=== PATIENT | female | born 1995 | race Caucasian/White ===

== ENCOUNTER 2016-05-24 11:54 | Emergency (ER) | payer MEDICAID ==
[2016-05-24 12:57] LABS: BASOPHILS 0.2 % (0.0-2.0); EOSINOPHILS 0.1 % (0-7); HEMATOCRIT 36.3 % (36.0-48.0); IMMATURE GRANULOCYTES 0.2 % (0-5); LYMPHOCYTES 20.3 % (15-50); MCH 20.7 pg (26.0-34.0); MCHC 30.3 g/dL (31.0-37.0); MCV 68.4 fL (80.0-100.0); MEAN PLATELET VOLUME 10.4 fL (7.4-10.4); MONOCYTES 6.4 % (2-11); NEUTROPHILS 72.8 % (40-80); PLATELET COUNT 267 10x3/uL (130-400); RBC 5.31 10x6/uL (4.00-5.40); RDW 16.6 % (11.5-14.5); WBC 12.1 10x3/uL (4.8-10.8)
[2016-05-24 13:08] LABS: HCG SERUM NEGATIVE (NEGATIVE)
[2016-05-24 13:52] LABS: APPEARANCE HAZY (CLEAR); BACTERIA MODERATE /hpf (NONE SEEN); BILIRUBIN NEGATIVE (NEGATIVE); COLOR YELLOW/PINK (YELLOW); GLUCOSE NEGATIVE (NEGATIVE); KETONE NEGATIVE (NEGATIVE); LEUKOCYTE ESTERASE 1+ (NEGATIVE); MUCUS <1+ /lpf (NONE SEEN); NITRITE NEGATIVE (NEGATIVE); PROTEIN 1+ mg/dL (NEGATIVE); RED CELLS - URINE >50 /hpf (0-5); UROBILINOGEN NORMAL (NORMAL); WHITE CELLS - URINE 0-5 /hpf (0-5)
== END 2016-05-24 14:30 | disposition home or self-care (01) ==
LOC: D.ER 11:54
PROVIDERS: Emergency Medicine; Nurse Practitioner Family
DX: N93.9 Abnormal uterine and vaginal bleeding, unspecified (principal); R10.2 Pelvic and perineal pain; N39.0 Urinary tract infection, site not specified; I10 Essential (primary) hypertension; F31.9 Bipolar disorder, unspecified; F42.9 Obsessive-compulsive disorder, unspecified; F43.10 Post-traumatic stress disorder, unspecified; F20.9 Schizophrenia, unspecified

== ENCOUNTER 2016-06-02 17:55 | Emergency (ER) | payer MEDICAID ==
[2016-06-02 18:40] LABS: APPEARANCE CLEAR (CLEAR); BILIRUBIN NEGATIVE (NEGATIVE); COLOR PINK (YELLOW); GLUCOSE NEGATIVE (NEGATIVE); KETONE NEGATIVE (NEGATIVE); LEUKOCYTE ESTERASE TRACE (NEGATIVE); NITRITE NEGATIVE (NEGATIVE); PROTEIN NEGATIVE (NEGATIVE); RED CELLS - URINE 25-50 /hpf (0-5); UROBILINOGEN NORMAL (NORMAL); WHITE CELLS - URINE 0-5 /hpf (0-5)
[2016-06-02 18:41] LABS: BACTERIA MODERATE /hpf (NONE SEEN); EPITHELIAL CELLS 0-5 /hpf (0-5)
[2016-06-02 18:48] LABS: BASOPHILS 0.2 % (0.0-2.0); EOSINOPHILS 0.4 % (0-7); HEMATOCRIT 35.5 % (36.0-48.0); HEMOGLOBIN 10.7 g/dL (12-16); IMMATURE GRANULOCYTES 0.1 % (0-5); LYMPHOCYTES 28.7 % (15-50); MCH 20.7 pg (26.0-34.0); MCHC 30.1 g/dL (31.0-37.0); MCV 68.5 fL (80.0-100.0); MEAN PLATELET VOLUME 9.9 fL (7.4-10.4); MONOCYTES 4.9 % (2-11); NEUTROPHILS 65.7 % (40-80); PLATELET COUNT 255 10x3/uL (130-400); RBC 5.18 10x6/uL (4.00-5.40); RDW 16.9 % (11.5-14.5); WBC 13.4 10x3/uL (4.8-10.8)
[2016-06-02 19:00] LABS: ALBUMIN 3.6 g/dL (3.4-5.0); ALKALINE PHOSPHATASE 100 U/L (46-116); ALT (SGPT) 28 U/L (10-68); BILIRUBIN - TOTAL 0.19 mg/dL (0.2-1.3); CALC OSMOLALITY 282 mosm/kg (275-300); CARBON DIOXIDE 30.1 mmol/L (21.0-32.0); CHLORIDE - SERUM 103 mmol/L (98-107); CREATININE - SERUM 0.7 mg/dL (0.6-1.3); GLUCOSE 82 mg/dL (74-106); POTASSIUM - SERUM 3.3 mmol/L (3.5-5.1); PROTEIN - SERUM 7.6 g/dL (6.4-8.2); SODIUM 143 mmol/L (136-145); UREA NITROGEN 10 mg/dL (7-18); eGFR NON AFRICAN AMERICAN > 90 mL/min (90-120)
[2016-06-02 20:10] LABS: AMYLASE - SERUM 67 U/L (25-115); LIPASE 124 U/L (73-393)
[2016-06-02 21:16] LABS: HELICOBACTER PYLORI IGG NEGATIVE (NEGATIVE)
== END 2016-06-02 23:35 | disposition home or self-care (01) ==
LOC: D.ER 17:55
PROVIDERS: Emergency Medicine; Physician Assistant Medical
DX: F41.9 Anxiety disorder, unspecified (principal); F31.9 Bipolar disorder, unspecified; I10 Essential (primary) hypertension; F84.0 Autistic disorder; F42.9 Obsessive-compulsive disorder, unspecified; F43.10 Post-traumatic stress disorder, unspecified; F20.9 Schizophrenia, unspecified